=== PATIENT | male | born 1970 | race Caucasian/White ===

== ENCOUNTER → 2019-07-23 | Outpatient (CLI) | payer SELFPAY ==
--- NOTE | 2019-07-23 14:37 | Diagnostic Imaging Report ---
INDICATION: Foot pain status post injury. COMPARISON: None. FINDINGS: 4 views of the left foot demonstrate no acute fracture or dislocation. There are no focal osseous lesions. There is no soft tissue swelling. Joint spaces are well maintained. No radiopaque foreign bodies are seen. Small plantar and Achilles insertion calcaneal enthesophytes are noted. IMPRESSION: No acute fractures or dislocations of the left foot. Dictated by: Dictated on workstation # [id number]
--- NOTE | 2019-07-23 18:32 | Diagnostic Imaging Report ---
INDICATION: Knee pain. COMPARISON: Comparison made with prior examination 07/23/2019 FINDINGS: There is mild narrowing of the medial knee joint compartment. There is some mild marginal osteophytosis. There are also degenerative changes of the patellofemoral joint. No fracture. IMPRESSION: Mild osteoarthritic change in the medial knee joint compartment and patellofemoral joint, otherwise unremarkable. Dictated by: Dictated on workstation # [id number]
== END ==
LOC: RAD FS 14:02
PROVIDERS: ATTEND Nurse Practitioner Family
DX: S99.922A Unspecified injury of left foot, initial encounter (principal); S89.92XA Unspecified injury of left lower leg, initial encounter; M17.12 Unilateral primary osteoarthritis, left knee
CPT/HCPCS: 73562; 73630

== ENCOUNTER 2020-08-01 00:16 | Emergency (ER) | payer SELFPAY ==
[~2020-08-01] VITALS: Ht 193 cm; Wt 115.9 kg
[2020-08-01 00:23] VITALS: BP 132/78
--- NOTE | 2020-08-01 00:37 | ED Lower Extremity ---
General Chief Complaint: Lower Extremity Stated Complaint: RIGHT LEG SWELLING,FALL Source: patient Exam Limitations: no limitations History of Present Illness Date Seen by Provider: Aug 01, 2020 Time Seen by Provider: 12:30 Initial Comments 50 y/o male presents w pain and bruising to his pelvic area. Today was standing on a chair and fell off (stradling) the arm hitting himself in the groin. Developed bruising in the area of the groin. Applied ice several times today. Now concerned by the appearance and pain. Denies testicular pain Allergies and Home Medications Patient Home Medication List Home Medication List Reviewed: Yes Review of Systems Constitutional: no symptoms reported; No fever, No malaise, No weakness Genitourinary: No decreased output, No discharge, No dysuria, No frequency, No hematuria, No hesitancy, No incontinence, No nocturia; pain, other (bruising of groin on the right) Musculoskeletal: see HPI; No back pain, No joint pain; muscle pain; No muscle weakness, No neck pain Skin: change in color, lumps; No rash Past Cfagrkz-Vsnzwg-Qfgaki Hx Past Med/Social Hx: Reviewed Nursing Past Med/Soc Hx Patient Social History Alcohol Use: Denies Use Recreational Drug Use: No Smoking Status: Current Everyday Smoker Type Used: Cigarettes 2nd Hand Smoke Exposure: Yes Recent Foreign Travel: No Contact w/Someone Who Travel: No Recent Hopitalizations: No Physical Abuse: No Sexual Abuse: No Mistreated: No Fear: No Seasonal Allergies Seasonal Allergies: No Past Medical History Surgeries: Yes (bilat carpal tunnel, broken ankle, 2 bilat surgery on feet) Gallbladder Respiratory: No Cardiac: No Neurological: No Genitourinary: No Gastrointestinal: Yes Crohns Disease Musculoskeletal: Yes (bilat ankle surgery) Endocrine: No HEENT: No Cancer: No Psychosocial: Yes Anxiety Physical Exam Vital Signs Vital Signs - First Documented 08/01/20 00:23 Temp 36.6 Pulse 80 Resp 16 B/P (MAP) 132/78 (96) Pulse Ox 97 O2 Delivery Room Air Capillary Refill : Height, Weight, BMI Height: '" Weight: lbs. oz. kg; BMI Method: General Appearance: WD/WN, no apparent distress Skin: ecchymosis (large area of ecchymosis Right inguinal from ASIS and along inguinal ligament to scrotum ...all on right side. Moderate edema without significant tenderness, no discreste hematoma formation. No inguinal mass or scrotal mass suspicious for hernia. Localized to groin, spares thigh and abdo men.) Progress/Results/Core Measures Results/Orders Vital Signs/I&O 08/01/20 00:23 Temp 36.6 Pulse 80 Resp 16 B/P (MAP) 132/78 (96) Pulse Ox 97 O2 Delivery Room Air Departure Impression Primary Impression: Contusion Qualified Codes: S30.0XXA - Contusion of lower back and pelvis, initial encounter Disposition: HOME, SELF-CARE Condition: Stable Departure-Patient Inst. Decision time for Depature: 00:37 Referrals: NIKKI ABRRAGAN MD (PCP/Family) Primary Care Physician Patient Instructions: Contusion (DC) Add. Discharge Instructions: See your doctor in 1 week for any further questions or concerns regarding your contusion All discharge instructions reviewed with patient and/or family. Voiced understanding. DMITRIY MONROY DO Aug 01, 2020 00:37
== END 2020-08-01 00:43 | disposition home or self-care (01) ==
LOC: EDUNIT# 00:16 → ER FS 00:19
DX: S30.1XXA Contusion of abdominal wall, initial encounter (principal); F17.210 Nicotine dependence, cigarettes, uncomplicated; W07.XXXA Fall from chair, initial encounter
CPT/HCPCS: 99283

== ENCOUNTER → 2020-12-22 | Outpatient (CLI) | payer OTHER ==
--- NOTE | 2020-12-22 16:16 | Diagnostic Imaging Report ---
INDICATION: Chronic right foot ulcer. TIME OF EXAM: 12:24 PM 3 views of the right foot were obtained. Large posterior plantar calcaneal spurs are noted. There is midfoot degenerative change. There are postoperative changes with plate and screws transfixing distal fibula. No definite bony destructive changes are seen. No fractures are identified. Soft tissues are unremarkable. No definite soft tissue gas is identified. IMPRESSION: Chronic changes. No acute bony abnormality is detected. Dictated by: Dictated on workstation # [id number]
== END ==
LOC: RAD 11:41
PROVIDERS: ATTEND Orthopaedic Surgery Hand Surgery
DX: L97.512 Non-pressure chronic ulcer of other part of right foot with fat layer exposed (principal); G60.9 Hereditary and idiopathic neuropathy, unspecified; F17.210 Nicotine dependence, cigarettes, uncomplicated
CPT/HCPCS: 73630

== ENCOUNTER → 2020-12-22 | Outpatient (CLI) | payer OTHER | LOC: WOUNDCARE 09:45 | PROVIDERS: ATTEND Orthopaedic Surgery Hand Surgery | DX: L97.512 Non-pressure chronic ulcer of other part of right foot with fat layer exposed (principal); G60.9 Hereditary and idiopathic neuropathy, unspecified; F17.210 Nicotine dependence, cigarettes, uncomplicated | CPT/HCPCS: 11042; 87070; 87205; G0463; L4360; 87077 ==

== ENCOUNTER → 2020-12-30 | Outpatient (CLI) | payer OTHER ==
[2020-12-30 09:19] LABS: BASOPHILS # (AUTO) 0.1 10^3/uL (0.0-0.1); BASOPHILS % (AUTO) 2 % (0-10); EOSINOPHILS # (AUTO) 0.3 10^3/uL (0.0-0.3); EOSINOPHILS % (AUTO) 5 % (0-10); HEMATOCRIT 45 % (40-54); HEMOGLOBIN 14.9 g/dL (13.3-17.7); LYMPHOCYTES # (AUTO) 1.7 10^3/uL (1.0-4.0); LYMPHOCYTES % (AUTO) 28 % (12-44); MEAN CORPUSCULAR HEMOGLOBIN 31 pg (25-34); MEAN CORPUSCULAR HGB CONC 33 g/dL (32-36); MEAN CORPUSCULAR VOLUME 94 fL (80-99); MEAN PLATELET VOLUME 10.6 fL (9.0-12.2); MONOCYTES # (AUTO) 0.6 10^3/uL (0.0-1.0); MONOCYTES % (AUTO) 11 % (0-12); NEUTROPHILS # (AUTO) 3.3 10^3/uL (1.8-7.8); NEUTROPHILS % (AUTO) 55 % (42-75); PLATELET COUNT 218 10^3/uL (130-400); WHITE BLOOD COUNT 6.1 10^3/uL (4.3-11.0)
[2020-12-30 09:41] LABS: ALANINE AMINOTRANSFERASE 25 U/L (0-55); ALBUMIN 3.8 GM/DL (3.2-4.5); ALKALINE PHOSPHATASE 80 U/L (40-136); BILIRUBIN,TOTAL 0.5 MG/DL (0.1-1.0); BUN/CREATININE RATIO 15; CALCIUM 8.6 MG/DL (8.5-10.1); CARBON DIOXIDE 24 MMOL/L (21-32); CHLORIDE 107 MMOL/L (98-107); CREATININE SERUM 0.85 MG/DL (0.60-1.30); GFR ESTIMATED > 60; GLUCOSE 109 MG/DL (70-105); SODIUM 141 MMOL/L (135-145); TOTAL PROTEIN 6.3 GM/DL (6.4-8.2)
== END ==
LOC: LAB 09:05
PROVIDERS: ATTEND Surgery
DX: L97.512 Non-pressure chronic ulcer of other part of right foot with fat layer exposed (principal); G60.9 Hereditary and idiopathic neuropathy, unspecified; T65.222A Toxic effect of tobacco cigarettes, intentional self-harm, initial encounter; F17.210 Nicotine dependence, cigarettes, uncomplicated; R73.03 Prediabetes
CPT/HCPCS: 36415; 80053; 83036; 85025

== ENCOUNTER → 2020-12-30 | Outpatient (CLI) | payer OTHER | LOC: WOUNDCARE 08:10 | PROVIDERS: ATTEND Surgery | DX: I96 Gangrene, not elsewhere classified (principal); L97.512 Non-pressure chronic ulcer of other part of right foot with fat layer exposed; G60.9 Hereditary and idiopathic neuropathy, unspecified; T65.222A Toxic effect of tobacco cigarettes, intentional self-harm, initial encounter; F17.210 Nicotine dependence, cigarettes, uncomplicated | CPT/HCPCS: 11042; A6197; G0463 ==

== ENCOUNTER → 2021-01-06 | Outpatient (CLI) | payer OTHER | LOC: WOUNDCARE 08:54 | PROVIDERS: ATTEND Surgery | DX: I96 Gangrene, not elsewhere classified (principal); L97.512 Non-pressure chronic ulcer of other part of right foot with fat layer exposed; G60.9 Hereditary and idiopathic neuropathy, unspecified; T65.222A Toxic effect of tobacco cigarettes, intentional self-harm, initial encounter; F17.218 Nicotine dependence, cigarettes, with other nicotine-induced disorders | CPT/HCPCS: 11042; G0463 ==

== ENCOUNTER → 2021-01-13 | Outpatient (CLI) | payer OTHER | LOC: WOUNDCARE 09:17 | PROVIDERS: ATTEND Orthopaedic Surgery Hand Surgery | DX: I96 Gangrene, not elsewhere classified (principal); L97.512 Non-pressure chronic ulcer of other part of right foot with fat layer exposed; G60.9 Hereditary and idiopathic neuropathy, unspecified; T65.222A Toxic effect of tobacco cigarettes, intentional self-harm, initial encounter; F17.218 Nicotine dependence, cigarettes, with other nicotine-induced disorders | CPT/HCPCS: 11042; G0463 ==

== ENCOUNTER → 2021-01-20 | Outpatient (CLI) | payer OTHER | LOC: WOUNDCARE 08:41 | PROVIDERS: ATTEND Surgery | DX: L97.512 Non-pressure chronic ulcer of other part of right foot with fat layer exposed (principal); G60.9 Hereditary and idiopathic neuropathy, unspecified; T65.222A Toxic effect of tobacco cigarettes, intentional self-harm, initial encounter; F17.218 Nicotine dependence, cigarettes, with other nicotine-induced disorders; I96 Gangrene, not elsewhere classified | CPT/HCPCS: 11043; A6207; G0463 ==

== ENCOUNTER → 2021-01-28 | Outpatient (CLI) | payer OTHER | LOC: WOUNDCARE 08:52 | PROVIDERS: ATTEND Orthopaedic Surgery Hand Surgery | DX: L97.512 Non-pressure chronic ulcer of other part of right foot with fat layer exposed (principal); G60.9 Hereditary and idiopathic neuropathy, unspecified; T65.222A Toxic effect of tobacco cigarettes, intentional self-harm, initial encounter; I96 Gangrene, not elsewhere classified; F17.218 Nicotine dependence, cigarettes, with other nicotine-induced disorders | CPT/HCPCS: 11042; G0463 ==

== ENCOUNTER → 2021-02-03 | Outpatient (CLI) | payer OTHER | LOC: WOUNDCARE 08:20 | PROVIDERS: ATTEND Surgery | DX: I96 Gangrene, not elsewhere classified (principal); L97.512 Non-pressure chronic ulcer of other part of right foot with fat layer exposed; G60.9 Hereditary and idiopathic neuropathy, unspecified; T65.222A Toxic effect of tobacco cigarettes, intentional self-harm, initial encounter; F17.218 Nicotine dependence, cigarettes, with other nicotine-induced disorders | CPT/HCPCS: 11042; A6260; G0463 ==

== ENCOUNTER → 2021-02-10 | Outpatient (CLI) | payer BC, OTHER | LOC: WOUNDCARE 08:13 | PROVIDERS: ATTEND Surgery | DX: I96 Gangrene, not elsewhere classified (principal); L97.512 Non-pressure chronic ulcer of other part of right foot with fat layer exposed; G60.9 Hereditary and idiopathic neuropathy, unspecified; T65.222A Toxic effect of tobacco cigarettes, intentional self-harm, initial encounter; F17.218 Nicotine dependence, cigarettes, with other nicotine-induced disorders | CPT/HCPCS: 11042; A6197; G0463 ==

== ENCOUNTER → 2021-02-15 | Outpatient (CLI) | payer BC, OTHER | LOC: WOUNDCARE 09:20 | PROVIDERS: ATTEND Surgery | DX: L97.512 Non-pressure chronic ulcer of other part of right foot with fat layer exposed (principal); G60.9 Hereditary and idiopathic neuropathy, unspecified; T65.222A Toxic effect of tobacco cigarettes, intentional self-harm, initial encounter; I96 Gangrene, not elsewhere classified; F17.218 Nicotine dependence, cigarettes, with other nicotine-induced disorders | CPT/HCPCS: 11042; A6207; G0463 ==

== ENCOUNTER → 2021-02-17 | Outpatient (CLI) | payer BC | LOC: WOUNDCARE 08:08 | PROVIDERS: ATTEND Surgery | DX: L97.512 Non-pressure chronic ulcer of other part of right foot with fat layer exposed (principal); G60.9 Hereditary and idiopathic neuropathy, unspecified; T65.222A Toxic effect of tobacco cigarettes, intentional self-harm, initial encounter; I96 Gangrene, not elsewhere classified; F17.218 Nicotine dependence, cigarettes, with other nicotine-induced disorders | CPT/HCPCS: 29445 ==

== ENCOUNTER 2021-02-23 02:02 | Emergency (ER) | payer BC ==
[2021-02-23 02:27] VITALS: BP 133/90
--- NOTE | 2021-02-23 02:34 | ED General ---
General Chief Complaint: General Problems/Pain Stated Complaint: WOUND CARE, CAST TO TIGHT ON RIGHT FOOT Nursing Triage Note: Pt received wound care from [facility] and had a cast put on his right foot last Monday. Pt complaining tonight that the cast is too tight and he would like it cut off. Nursing Sepsis Screen: No Definite Risk Source of Information: Patient Exam Limitations: No Limitations History of Present Illness Date Seen by Provider: Feb 23, 2021 Time Seen by Provider: 02:08 Initial Comments Here with complaint of pain to the right foot. Had wound care cast placed a few days ago by Dr. Duggan. States that he has been moving his toes tonight he cannot stand it anymore and needs to have it removed. He resents with wound care card showing how to do cast removal if there are problems. Denies other concerns. Timing/Duration: 4-6 Hours Severity: Moderate Allergies and Home Medications Patient Home Medication List Home Medication List Reviewed: Yes Review of Systems Review of Systems Constitutional: No chills, No fever Respiratory: no symptoms reported Cardiovascular: no symptoms reported Musculoskeletal: joint pain, muscle pain Skin: lesions, other (Chronic foot ulcer) Psychiatric/Neurological: Pre-Existing Deficit Past Szdqwes-Xtnbux-Nnahug Hx Past Med/Social Hx: Reviewed Nursing Past Med/Soc Hx Patient Social History Alcohol Use: Denies Use Type Used: Cigarettes 2nd Hand Smoke Exposure: Yes Recent Infectious Disease Expo: No Recent Hopitalizations: No Seasonal Allergies Seasonal Allergies: No Past Medical History Surgeries: Yes (bilat carpal tunnel, broken ankle, 2 bilat surgery on feet) Gallbladder Respiratory: No Cardiac: No Neurological: No Genitourinary: No Gastrointestinal: Yes Crohns Disease Musculoskeletal: Yes (bilat ankle surgery) Endocrine: No HEENT: No Cancer: No Psychosocial: Yes Anxiety Family Medical History Reviewed Nursing Family Hx Physical Exam Vital Signs Vital Signs - First Documented 02/23/21 02:06 Pulse 102 Resp 18 B/P (MAP) 133/90 (104) Pulse Ox 96 O2 Delivery Room Air Capillary Refill : Less Than 3 Seconds Height, Weight, BMI Height: '" Weight: lbs. oz. kg; 31.00 BMI Method: General Appearance: No Apparent Distress, WD/WN Respiratory: Lungs Clear, Normal Breath Sounds Cardiovascular: Regular Rate, Rhythm, No Murmur Extremity: Other (Wound care cast boot to right foot and lower extremity) Neurologic/Psychiatric: Alert, Oriented x3 Progress/Results/Core Measures Suspected Sepsis Recent Fever Within 48 Hours: No Infection Criteria Present: None New/Unexplained Altered Menta: No Sepsis Screen: No Definite Risk SIRS Temperature: Pulse: 102 Respiratory Rate: 18 Blood Pressure 133 /90 Mean: 104 Results/Orders Vital Signs/I&O 02/23/21 02:06 Pulse 102 Resp 18 B/P (MAP) 133/90 (104) Pulse Ox 96 O2 Delivery Room Air Capillary Refill : Less Than 3 Seconds Blood Pressure Mean: 104 Progress Note : Progress Note Seen and evaluated. Per patient request and following the directions on the wound care card, cast was easily removed. Stockinette remained in place and patient have his own boot from previous wound care management that he then put on. States he feels much better and was appreciative of the cast removal. Patient instructed to follow-up with Dr. Duggan tomorrow by calling wound care clinic. Discharged home with return precautions. Patient verbalized understanding of instructions and agreement with plan. Departure Impression Primary Impression: Encounter for cast removal Disposition: HOME, SELF-CARE Condition: Improved Departure-Patient Inst. Decision time for Depature: 02:32 Referrals: NIKKI BARRAGAN MD (PCP/Family) Primary Care Physician MAVERICK DUGGAN MD Patient Instructions: Cast Care, Wound Care (DC) Add. Discharge Instructions: All discharge instructions reviewed with patient and/or family. Voiced understanding. Use protective boot as previously prescribed. Follow-up with Dr. Duggan for recheck and further evaluation. Call his office in the morning for appointment. Return for worse pain, swelling, foul-smelling drainage or other concerns as needed. Copy Copies To 1: MAVERICK DUGGAN MD, TIMOTHY D MD Feb 23, 2021 02:34
== END 2021-02-23 02:36 | disposition home or self-care (01) ==
LOC: EDUNIT# 02:02 → ER FS 02:04
DX: Z46.89 Encounter for fitting and adjustment of other specified devices (principal); Z77.22 Contact with and (suspected) exposure to environmental tobacco smoke (acute) (chronic)
CPT/HCPCS: 99281

== ENCOUNTER → 2021-02-24 | Outpatient (CLI) | payer BC | LOC: WOUNDCARE 08:09 | PROVIDERS: ATTEND Surgery | DX: I96 Gangrene, not elsewhere classified (principal); L97.512 Non-pressure chronic ulcer of other part of right foot with fat layer exposed; G60.9 Hereditary and idiopathic neuropathy, unspecified; T65.222A Toxic effect of tobacco cigarettes, intentional self-harm, initial encounter; F17.218 Nicotine dependence, cigarettes, with other nicotine-induced disorders | CPT/HCPCS: 11042; G0463 ==

== ENCOUNTER → 2021-03-03 | Outpatient (CLI) | payer BC | LOC: WOUNDCARE 08:12 | PROVIDERS: ATTEND Surgery | DX: I96 Gangrene, not elsewhere classified (principal); L97.512 Non-pressure chronic ulcer of other part of right foot with fat layer exposed; G60.9 Hereditary and idiopathic neuropathy, unspecified; T65.222A Toxic effect of tobacco cigarettes, intentional self-harm, initial encounter; F17.218 Nicotine dependence, cigarettes, with other nicotine-induced disorders | CPT/HCPCS: 11042; G0463 ==

== ENCOUNTER → 2021-03-12 | Outpatient (CLI) | payer BC | LOC: WOUNDCARE 08:18 | PROVIDERS: ATTEND Orthopaedic Surgery Hand Surgery | DX: I96 Gangrene, not elsewhere classified (principal); L97.512 Non-pressure chronic ulcer of other part of right foot with fat layer exposed; G60.9 Hereditary and idiopathic neuropathy, unspecified; F17.218 Nicotine dependence, cigarettes, with other nicotine-induced disorders; T65.222A Toxic effect of tobacco cigarettes, intentional self-harm, initial encounter | CPT/HCPCS: 11042; 87070; 87077; 87205; G0463 ==

== ENCOUNTER 2021-04-16 01:27 | Emergency (ER) | payer BC ==
[2021-04-16] MEDS ORDERED: HYDROcodone/APAP 5 MG/325 MG (LORTAB) TAB ONE (01:49)
[2021-04-16] MEDS ORDERED: CEPHALEXIN 250 MG (KEFLEX) CAP PO ONE (01:49)
[2021-04-16] MEDS ORDERED: CEPHALEXIN 250 MG (KEFLEX) CAP PO STA (01:51)
--- NOTE | 2021-04-16 01:56 | ED Integumentary General ---
General Chief Complaint: Skin/Wound Problems Stated Complaint: RIGHT LEG SWELLING Nursing Triage Note: Pt presents with right lower leg swelling. Pt is being treated for an ulcer on the bottom of his right foot but states the redness and swelling up his leg just started over the past 2 days Source: patient Exam Limitations: no limitations History of Present Illness Date Seen by Provider: April 16, 2021 Time Seen by Provider: 01:40 Initial Comments 51 y/o male presents w 2 days of redness, swelling progressively getting worse of R foot and leg. Has has an ulcer on his R great toe for months, seeing a dag coater and scheduled to have surgery in April. Was taking doxycycline as "prevention" until 10 days ago when he ran out. Wound has changed appearance and looks more yellow to him. NO wound drainage. No other skin problems. Redness and swelling have progressed rapidly over 2 days up to and starting to go above his knee. No previous occurrence of similar reaction in the past. Allergies and Home Medications Allergies Coded Allergies: No Known Drug Allergies (Unverified , 02/23/21) Home Medications Bacitracin/Polymyxin B Sulfate 28.3 Gm Oint...g., 28.3 GM TP BID Prescribed by: DMITRIY MONROY on 04/16/21156 Cephalexin 500 Mg Tablet, 500 MG PO QID Prescribed by: DMITRIY MONROY on 04/16/21156 Hydrocodone/Acetaminophen 1 Each Tablet, 1 EACH PO Q4H Prescribed by: DMITRIY MONROY on 04/16/21 0159 Patient Home Medication List Home Medication List Reviewed: Yes Review of Systems Review of Systems Constitutional: No fever, No malaise, No weakness EENTM: no symptoms reported Respiratory: no symptoms reported; No cough, No dyspnea on exertion, No short of breath, No stridor, No wheezing Cardiovascular: No chest pain; edema; No palpitations, No syncope Gastrointestinal: No abdominal pain, No nausea, No vomiting Musculoskeletal: No back pain, No joint pain; other (R foot and leg pain w swelling) Skin: see HPI, change in color (redness R foot and leg), lesions (ulcer R great toe) Past Vlrefui-Wuigim-Xobyhs Hx Past Med/Social Hx: Reviewed Nursing Past Med/Soc Hx Patient Social History Alcohol Use: Denies Use Smoking Status: Current Everyday Smoker Type Used: Cigarettes 2nd Hand Smoke Exposure: Yes Recent Infectious Disease Expo: No Recent Hopitalizations: No Seasonal Allergies Seasonal Allergies: No Past Medical History Surgeries: Yes (bilat carpal tunnel, broken ankle, 2 bilat surgery on feet) Gallbladder Respiratory: No Cardiac: No Neurological: No Genitourinary: No Gastrointestinal: Yes Crohns Disease Musculoskeletal: Yes (bilat ankle surgery) Endocrine: No HEENT: No Cancer: No Psychosocial: Yes Anxiety Physical Exam Vital Signs Vital Signs - First Documented 04/16/21 01:33 Temp 36.8 Pulse 88 Resp 16 B/P (MAP) 128/76 (93) Pulse Ox 95 O2 Delivery Room Air Capillary Refill : Less Than 3 Seconds General Appearance: WD/WN, no apparent distress Extremities: normal range of motion; No calf tenderness; pedal edema, swelling, other (chronic ulcer ventral R great toe without discharge or abscess forma tion....from there proximally erythema of toe, foot and distal leg, then sparsely to proximal leg and a little above knee, not circumferentially. no distinct demarcation of infection) Progress/Results/Core Measures Results/Orders My Orders Orders - DMITRIY MONROY DO Cephalexin Capsule (Keflex Capsule) (04/16/21 01:51) Hydrocodone/Apap 5/325 Tablet (Lortab 5 (04/16/21 02:00) Medications Given in ED Current Medications Medications Dose Ordered Sig/Thanh Route Start Time Stop Time Status Last Admin Dose Admin Acetaminophen/ Hydrocodone Bitart 1 ea ONCE ONCE PO 04/16/21 02:00 04/16/21 02:01 UNV 04/16/21 01:58 1 EA Vital Signs/I&O 04/16/21 01:33 Temp 36.8 Pulse 88 Resp 16 B/P (MAP) 128/76 (93) Pulse Ox 95 O2 Delivery Room Air Blood Pressure Mean: 93 Progress Progress Note : Progress Note short trial of po Abx w hopes of turning the spread of infection over the next 24 -48 hours. Advised to return to ER if not improving during this time to consider admission. See DC instructions. Departure Impression Primary Impression: Cellulitis Qualified Codes: L03.115 - Cellulitis of right lower limb Disposition: 01 HOME, SELF-CARE Condition: Stable Departure-Patient Inst. Decision time for Depature: 01:51 Referrals: NIKKI BARRAGAN MD (PCP/Family) Primary Care Physician Patient Instructions: Cellulitis (Skin Infection), Adult (DC) Add. Discharge Instructions: follow up with your wound care doctor tomorrow if possible, otherwise [facility]. Return to the ER in 24 - 48 hours if not improving....for possible admission to hospital w IV antibiotics Keep your leg elevated above your chest to decrease swelling. Avoid excessive time on your feet. apply antibiotic ointment to your wound/ ulcer twice daily after soaking in epsom salt water. All discharge instructions reviewed with patient and/or family. Voiced understanding. Scripts Bacitracin/Polymyxin B Sulfate (Polysporin Ointment) 28.3 Gm Oint...g. 28.3 GM TP BID, #1 TUBE Prov: DMITRIY MONROY DO 04/16/21 Hydrocodone/Acetaminophen (Hydrocodone-Acetamin 5-325 mg) 1 Each Tablet 1 EACH PO Q4H for Abdominal Pain, #10 TAB Prov: DMITRIY MONROY DO 04/16/21 Cephalexin (Cephalexin) 500 Mg Tablet 500 MG PO QID, #40 TAB 0 Refills Prov: DMITRIY MONROY DO 04/16/21 Work/School Note: Work Release Form Date Seen in the Emergency Department: April 16, 2021 Return to Work: April 19, 2021 Restrictions: No Restrictions DMITRIY MONROY DO April 16, 2021 01:56
[2021-04-16] MEDS ORDERED: ACHD5005 PO (01:57)
[2021-04-16] MEDS ORDERED: CEPH500T PO (01:57)
[2021-04-16] MEDS ORDERED: BACI28.35 TP (01:57)
[2021-04-16] MEDS ORDERED: HYDROcodone/APAP 5 MG/325 MG (LORTAB) TAB PO ONE (02:00)
[2021-04-16 02:02] VITALS: BP 128/76
== END 2021-04-16 02:03 | disposition home or self-care (01) ==
LOC: EDUNIT# 01:27 → ER FS 01:30
DX: L03.115 Cellulitis of right lower limb (principal); F17.210 Nicotine dependence, cigarettes, uncomplicated
CPT/HCPCS: 99283

== ENCOUNTER 2021-05-09 11:46 | Emergency (ER) | payer BC ==
[~2021-05-09] VITALS: Ht 193 cm; Wt 113.8 kg
[~2021-05-09 11:46] MED LIST: ACHD5005 PO; BACI28.35 TP; CEPH500T PO
[2021-05-09 11:53] VITALS: BP 132/69
--- NOTE | 2021-05-09 11:55 | ED General ---
General Stated Complaint: PAIN IN RIBS POST-SURGERY History of Present Illness Date Seen by Provider: May 09, 2021 Time Seen by Provider: 11:55 Initial Comments 51-year-old male presents with bilateral lower chest wall pain. Patient reports that started 2 days ago after he coughed a lot following an elective surgery. The pain gets worse with any movement. Is now moved around to his bilateral back. Started in the right lower chest wall. Patient reports that as long as he sitting still he has no pain but then gets worse with any type of movement especially rotation and twisting. He denies any shortness of breath, fever, chills, nausea or vomiting. Allergies and Home Medications Allergies Coded Allergies: No Known Drug Allergies (Unverified , 02/23/21) Home Medications Bacitracin/Polymyxin B Sulfate 28.3 Gm Oint...g., 28.3 GM TP BID Prescribed by: DMITRIY MONROY on 04/16/21 015 Cephalexin 500 Mg Tablet, 500 MG PO QID Prescribed by: DMITRIY MONROY on 04/16/21 015 Hydrocodone/Acetaminophen 1 Each Tablet, 1 EACH PO Q4H Prescribed by: DMITRIY MONROY on 04/16/21 0159 Patient Home Medication List Home Medication List Reviewed: Yes Review of Systems Review of Systems Constitutional: No chills, No fever Respiratory: see HPI Cardiovascular: see HPI Gastrointestinal: no symptoms reported Genitourinary: no symptoms reported Skin: no symptoms reported Psychiatric/Neurological: No Symptoms Reported Past Pksnwek-Kohiid-Snsdsc Hx Patient Social History Type Used: Cigarettes 2nd Hand Smoke Exposure: Yes Recent Hopitalizations: No Seasonal Allergies Seasonal Allergies: No Past Medical History Surgeries: Yes (bilat carpal tunnel, broken ankle, 2 bilat surgery on feet) Gallbladder Respiratory: No Cardiac: No Neurological: No Genitourinary: No Gastrointestinal: Yes Crohns Disease Musculoskeletal: Yes (bilat ankle surgery) Endocrine: No HEENT: No Cancer: No Psychosocial: Yes Anxiety Physical Exam Vital Signs Capillary Refill : Height, Weight, BMI Height: '" Weight: lbs. oz. kg; 31.00 BMI Method: General Appearance: No Apparent Distress, WD/WN HEENT: Moist Mucous Membranes Neck: Normal Inspection, Non Tender Respiratory: Lungs Clear, Normal Breath Sounds, No Accessory Muscle Use Cardiovascular: Regular Rate, Rhythm, No Edema Gastrointestinal: Non Tender, Soft Back: Normal Inspection Neurologic/Psychiatric: Alert, Oriented x3, Normal Mood/Affect, postdoctoral fellow II-XII Norm as Tested Progress/Results/Core Measures Suspected Sepsis SIRS Temperature: Pulse: Respiratory Rate: Blood Pressure / Mean: Results/Orders My Orders Orders - HERO VALDIVIA DO Chest Pa/Lat (2 View) (05/09/21 12:01) Vital Signs/I&O Capillary Refill : Progress Note : Progress Note Patient is consistent with chest wall strain. I will provide him a prescription for a couple days of muscle relaxant. Patient stable and discharged Diagnostic Imaging Diagonstic Imaging: Xray Plain Films/CT/US/NM/MRI: chest Comments Date of Exam:05/09/21 CHEST PA/LAT (2 VIEW) EXAMINATION: Chest 2 view HISTORY: chest wall pain COMPARISON: None available. FINDINGS: Heart size and pulmonary vasculature are normal. The lungs are clear without consolidation, pleural effusion, or pneumothorax. Degenerative changes of the thoracic spine. Osseous structures are otherwise intact. IMPRESSION: 1. No acute radiographic abnormality in the chest. Departure Impression Primary Impression: Muscle strain of chest wall Qualified Codes: S29.011A - Strain of muscle and tendon of front wall of thorax, initial encounter Disposition: HOME, SELF-CARE Condition: Stable Departure-Patient Inst. Referrals: NIKKI BARRAGAN MD (PCP/Family) Primary Care Physician Patient Instructions: Muscle Strain ED Add. Discharge Instructions: Tylenol or ibuprofen as needed for pain 4% topical lidocaine as directed on package as needed for pain Scripts Cyclobenzaprine HCl (Cyclobenzaprine HCl) 10 Mg Tablet 10 MG PO Q8H PRN for SPASMS, #15 TAB 0 Refills Prov: SHEAHEROCHANDAN Ro DO 05/09/21 SHEAHERO L DO May 09, 2021 11:55
--- NOTE | 2021-05-09 12:30 | Diagnostic Imaging Report ---
EXAMINATION: Chest 2 view HISTORY: chest wall pain COMPARISON: None available. FINDINGS: Heart size and pulmonary vasculature are normal. The lungs are clear without consolidation, pleural effusion, or pneumothorax. Degenerative changes of the thoracic spine. Osseous structures are otherwise intact. IMPRESSION: 1. No acute radiographic abnormality in the chest. Dictated by: Dictated on workstation # [id number]
[2021-05-09] MEDS ORDERED: CYCL10TA9 PO (12:44)
== END 2021-05-09 12:47 | disposition home or self-care (01) ==
LOC: EDUNIT# 11:46 → ER FS 11:49
DX: S29.011A Strain of muscle and tendon of front wall of thorax, initial encounter (principal); Z77.22 Contact with and (suspected) exposure to environmental tobacco smoke (acute) (chronic); X58.XXXA Exposure to other specified factors, initial encounter
CPT/HCPCS: 71046

== ENCOUNTER → 2021-05-22 | Outpatient (CLI) | payer BC ==
[~2021-05-22] MED LIST changes: +CYCL10TA9 PO
== END ==
LOC: LAB FS 09:36
PROVIDERS: ATTEND Internal Medicine Infectious Disease
DX: M86.9 Osteomyelitis, unspecified (principal)
CPT/HCPCS: 36415; 80202

== ENCOUNTER → 2021-05-24 | Outpatient (CLI) | payer BC ==
[2021-05-24 09:54] LABS: BASOPHILS # (AUTO) 0.1 10^3/uL (0.0-0.1); BASOPHILS % (AUTO) 2 % (0-10); EOSINOPHILS # (AUTO) 0.3 10^3/uL (0.0-0.3); EOSINOPHILS % (AUTO) 4 % (0-10); HEMATOCRIT 42 % (40-54); HEMOGLOBIN 14.2 G/DL (13.3-17.7); LYMPHOCYTES # (AUTO) 1.4 X 10^3 (1.0-4.0); LYMPHOCYTES % (AUTO) 23 % (12-44); MEAN CORPUSCULAR HEMOGLOBIN 31 PG (25-34); MEAN CORPUSCULAR HGB CONC 34 G/DL (32-36); MEAN CORPUSCULAR VOLUME 91 FL (80-99); MONOCYTES # (AUTO) 0.4 X 10^3 (0.0-1.0); MONOCYTES % (AUTO) 7 % (0-12); NEUTROPHILS # (AUTO) 3.9 X 10^3 (1.8-7.8); NEUTROPHILS % (AUTO) 64 % (42-75); PLATELET COUNT 268 10^3/uL (130-400); WHITE BLOOD COUNT 6.1 10^3/uL (4.3-11.0)
[2021-05-24 09:55] LABS: BUN/CREATININE RATIO 16; CARBON DIOXIDE 25 MMOL/L (21-32); CHLORIDE 108 MMOL/L (98-107); CREATININE SERUM 0.82 MG/DL (0.60-1.30); ERYTHROCYTE SEDIMENTATION RATE 9 MM/HR (0-30); GFR ESTIMATED > 60; POTASSIUM 3.7 MMOL/L (3.6-5.0); SODIUM 141 MMOL/L (135-145)
[2021-05-24 09:56] LABS: ALANINE AMINOTRANSFERASE 16 U/L (0-55); ALBUMIN 3.6 GM/DL (3.2-4.5); ALKALINE PHOSPHATASE 98 U/L (40-136); BILIRUBIN,TOTAL 0.3 MG/DL (0.1-1.0); CALCIUM 8.3 MG/DL (8.5-10.1); GLUCOSE 105 MG/DL (70-105); TOTAL PROTEIN 6.1 GM/DL (6.4-8.2); VANCOMYCIN,TROUGH 5.6 UG/ML (10.0-20.0)
== END ==
LOC: LAB FS 08:44
PROVIDERS: ATTEND Internal Medicine Infectious Disease
DX: M86.9 Osteomyelitis, unspecified (principal); G60.9 Hereditary and idiopathic neuropathy, unspecified
CPT/HCPCS: 36415; 80053; 80202; 85652

== ENCOUNTER → 2021-05-27 | Outpatient (CLI) | payer BC | LOC: LAB FS 08:16 | PROVIDERS: ATTEND Internal Medicine Infectious Disease | DX: A41.50 Gram-negative sepsis, unspecified (principal); M86.671 Other chronic osteomyelitis, right ankle and foot | CPT/HCPCS: 36415; 80202 ==

== ENCOUNTER → 2021-05-30 | Outpatient (CLI) | payer BC ==
[2021-05-30 09:30] LABS: HEMATOCRIT 44 % (40-54); HEMOGLOBIN 14.9 G/DL (13.3-17.7); MEAN CORPUSCULAR HEMOGLOBIN 31 PG (25-34); MEAN CORPUSCULAR VOLUME 92 FL (80-99); WHITE BLOOD COUNT 5.1 10^3/uL (4.3-11.0)
[2021-05-30 09:31] LABS: BASOPHILS # (AUTO) 0.1 10^3/uL (0.0-0.1); BASOPHILS % (AUTO) 1 % (0-10); EOSINOPHILS # (AUTO) 0.2 10^3/uL (0.0-0.3); EOSINOPHILS % (AUTO) 5 % (0-10); LYMPHOCYTES # (AUTO) 1.4 X 10^3 (1.0-4.0); LYMPHOCYTES % (AUTO) 27 % (12-44); MEAN CORPUSCULAR HGB CONC 34 G/DL (32-36); MEAN PLATELET VOLUME 11.2 FL (7.4-10.4); MONOCYTES # (AUTO) 0.4 X 10^3 (0.0-1.0); MONOCYTES % (AUTO) 8 % (0-12); NEUTROPHILS % (AUTO) 59 % (42-75); PLATELET COUNT 196 10^3/uL (130-400)
[2021-05-30 09:43] LABS: CARBON DIOXIDE 24 MMOL/L (21-32); CHLORIDE 105 MMOL/L (98-107); POTASSIUM 3.7 MMOL/L (3.6-5.0); SODIUM 139 MMOL/L (135-145)
[2021-05-30 09:44] LABS: ALANINE AMINOTRANSFERASE 32 U/L (0-55); ALBUMIN 3.7 GM/DL (3.2-4.5); ALKALINE PHOSPHATASE 95 U/L (40-136); BILIRUBIN,TOTAL 0.4 MG/DL (0.1-1.0); BUN/CREATININE RATIO 11; CALCIUM 8.4 MG/DL (8.5-10.1); CREATININE SERUM 0.79 MG/DL (0.60-1.30); GFR ESTIMATED > 60; GLUCOSE 101 MG/DL (70-105); TOTAL PROTEIN 6.2 GM/DL (6.4-8.2); VANCOMYCIN,TROUGH 8.2 UG/ML (10.0-20.0)
== END ==
LOC: IHC 09:03
PROVIDERS: ATTEND Internal Medicine Infectious Disease
DX: M86.671 Other chronic osteomyelitis, right ankle and foot (principal)
CPT/HCPCS: 80053; 80202; 85025; 85652

== ENCOUNTER → 2021-06-01 | Outpatient (CLI) | payer BC ==
[2021-06-01 09:22] LABS: CHLORIDE 105 MMOL/L (98-107); POTASSIUM 3.6 MMOL/L (3.6-5.0); SODIUM 140 MMOL/L (135-145)
[2021-06-01 09:23] LABS: ALANINE AMINOTRANSFERASE 27 U/L (0-55); ALBUMIN 3.9 GM/DL (3.2-4.5); ALKALINE PHOSPHATASE 93 U/L (40-136); BILIRUBIN,TOTAL 0.4 MG/DL (0.1-1.0); BUN/CREATININE RATIO 12; CALCIUM 8.4 MG/DL (8.5-10.1); CARBON DIOXIDE 25 MMOL/L (21-32); CREATININE SERUM 0.81 MG/DL (0.60-1.30); GFR ESTIMATED > 60; GLUCOSE 118 MG/DL (70-105); TOTAL PROTEIN 6.3 GM/DL (6.4-8.2)
[2021-06-01 09:39] LABS: HEMATOCRIT 45 % (40-54); HEMOGLOBIN 15.1 G/DL (13.3-17.7); MEAN CORPUSCULAR HEMOGLOBIN 31 PG (25-34); MEAN CORPUSCULAR VOLUME 92 FL (80-99); WHITE BLOOD COUNT 5.6 10^3/uL (4.3-11.0)
[2021-06-01 09:40] LABS: BASOPHILS # (AUTO) 0.1 10^3/uL (0.0-0.1); BASOPHILS % (AUTO) 2 % (0-10); EOSINOPHILS # (AUTO) 0.3 10^3/uL (0.0-0.3); EOSINOPHILS % (AUTO) 4 % (0-10); LYMPHOCYTES # (AUTO) 1.5 X 10^3 (1.0-4.0); LYMPHOCYTES % (AUTO) 26 % (12-44); MEAN CORPUSCULAR HGB CONC 34 G/DL (32-36); MONOCYTES # (AUTO) 0.4 X 10^3 (0.0-1.0); MONOCYTES % (AUTO) 8 % (0-12); NEUTROPHILS # (AUTO) 3.4 X 10^3 (1.8-7.8); NEUTROPHILS % (AUTO) 60 % (42-75); PLATELET COUNT 228 10^3/uL (130-400)
[2021-06-01 09:41] LABS: BAND NEUTROPHILS 0 %; BASOPHILS % (MANUAL) 0 %; EOSINOPHILS % (MANUAL) 2 %; ERYTHROCYTE SEDIMENTATION RATE 3 MM/HR (0-30); LYMPHOCYTES % (MANUAL) 28 %; MONOCYTES % (MANUAL) 8 %; NEUTROPHILS % (MANUAL) 62 %
== END ==
LOC: IHC 08:29
PROVIDERS: ATTEND Internal Medicine Infectious Disease
DX: A41.50 Gram-negative sepsis, unspecified (principal); M86.671 Other chronic osteomyelitis, right ankle and foot
CPT/HCPCS: 80053; 85007; 85027; 85652

== ENCOUNTER → 2021-06-03 | Outpatient (CLI) | payer BC | LOC: IHC 08:49 | PROVIDERS: ATTEND Internal Medicine Infectious Disease | DX: Z47.89 Encounter for other orthopedic aftercare (principal); A41.50 Gram-negative sepsis, unspecified; M86.671 Other chronic osteomyelitis, right ankle and foot | CPT/HCPCS: 80202 ==

== ENCOUNTER → 2021-06-07 | Outpatient (CLI) | payer BC ==
[2021-06-07 11:21] LABS: POTASSIUM 3.8 MMOL/L (3.6-5.0); SODIUM 143 MMOL/L (135-145)
[2021-06-07 11:22] LABS: ALANINE AMINOTRANSFERASE 18 U/L (0-55); ALBUMIN 3.8 GM/DL (3.2-4.5); ALKALINE PHOSPHATASE 90 U/L (40-136); BILIRUBIN,TOTAL 0.4 MG/DL (0.1-1.0); BUN/CREATININE RATIO 19; CALCIUM 8.4 MG/DL (8.5-10.1); CARBON DIOXIDE 25 MMOL/L (21-32); CHLORIDE 108 MMOL/L (98-107); GFR ESTIMATED > 60; GLUCOSE 120 MG/DL (70-105); TOTAL PROTEIN 6.1 GM/DL (6.4-8.2)
[2021-06-07 11:55] LABS: BASOPHILS # (AUTO) 0.1 10^3/uL (0.0-0.1); BASOPHILS % (AUTO) 1 % (0-10); EOSINOPHILS # (AUTO) 0.3 10^3/uL (0.0-0.3); EOSINOPHILS % (AUTO) 6 % (0-10); HEMATOCRIT 44 % (40-54); HEMOGLOBIN 14.6 G/DL (13.3-17.7); LYMPHOCYTES # (AUTO) 1.2 X 10^3 (1.0-4.0); LYMPHOCYTES % (AUTO) 24 % (12-44); MEAN CORPUSCULAR HEMOGLOBIN 31 PG (25-34); MEAN CORPUSCULAR HGB CONC 33 G/DL (32-36); MEAN CORPUSCULAR VOLUME 92 FL (80-99); MEAN PLATELET VOLUME 11.3 FL (7.4-10.4); MONOCYTES # (AUTO) 0.5 X 10^3 (0.0-1.0); MONOCYTES % (AUTO) 10 % (0-12); NEUTROPHILS # (AUTO) 2.9 X 10^3 (1.8-7.8); NEUTROPHILS % (AUTO) 59 % (42-75); PLATELET COUNT 203 10^3/uL (130-400); WHITE BLOOD COUNT 4.9 10^3/uL (4.3-11.0)
[2021-06-07 11:56] LABS: ATYPICAL LYMPHOCYTES 5 %; BAND NEUTROPHILS 1 %; BASOPHILS % (MANUAL) 2 %; EOSINOPHILS % (MANUAL) 6 %; LYMPHOCYTES % (MANUAL) 20 %; MONOCYTES % (MANUAL) 6 %; NEUTROPHILS % (MANUAL) 60 %
[2021-06-07 11:57] LABS: ERYTHROCYTE SEDIMENTATION RATE 6 MM/HR (0-30)
[2021-06-07 15:03] LABS: CREATINE KINASE 90 U/L (30-200)
== END ==
LOC: LAB FS 09:14
PROVIDERS: ATTEND Internal Medicine Infectious Disease
DX: A41.50 Gram-negative sepsis, unspecified (principal); M86.671 Other chronic osteomyelitis, right ankle and foot
CPT/HCPCS: 36415; 80053; 82550; 85007; 85027; 85652

== ENCOUNTER → 2021-06-14 | Outpatient (CLI) | payer BC ==
[2021-06-14 11:36] LABS: ALANINE AMINOTRANSFERASE 23 U/L (0-55); ALKALINE PHOSPHATASE 104 U/L (40-136); BILIRUBIN,TOTAL 0.3 MG/DL (0.1-1.0); BUN/CREATININE RATIO 19; CALCIUM 8.8 MG/DL (8.5-10.1); CARBON DIOXIDE 25 MMOL/L (21-32); CHLORIDE 108 MMOL/L (98-107); CREATININE SERUM 0.78 MG/DL (0.60-1.30); GFR ESTIMATED > 60; GLUCOSE 142 MG/DL (70-105); POTASSIUM 3.8 MMOL/L (3.6-5.0); SODIUM 142 MMOL/L (135-145)
[2021-06-14 11:37] LABS: ALBUMIN 3.8 GM/DL (3.2-4.5); TOTAL PROTEIN 6.5 GM/DL (6.4-8.2)
[2021-06-14 11:46] LABS: BASOPHILS % (AUTO) 1 % (0-10); EOSINOPHILS % (AUTO) 4 % (0-10); HEMATOCRIT 46 % (40-54); HEMOGLOBIN 15.5 G/DL (13.3-17.7); LYMPHOCYTES % (AUTO) 25 % (12-44); MEAN CORPUSCULAR HEMOGLOBIN 31 PG (25-34); MEAN CORPUSCULAR HGB CONC 34 G/DL (32-36); MEAN CORPUSCULAR VOLUME 93 FL (80-99); MEAN PLATELET VOLUME 11.4 FL (7.4-10.4); MONOCYTES % (AUTO) 6 % (0-12); NEUTROPHILS % (AUTO) 63 % (42-75); PLATELET COUNT 222 10^3/uL (130-400); WHITE BLOOD COUNT 5.7 10^3/uL (4.3-11.0)
[2021-06-14 11:47] LABS: BAND NEUTROPHILS 1 %; BASOPHILS # (AUTO) 0.1 10^3/uL (0.0-0.1); BASOPHILS % (MANUAL) 1 %; EOSINOPHILS # (AUTO) 0.2 10^3/uL (0.0-0.3); EOSINOPHILS % (MANUAL) 2 %; ERYTHROCYTE SEDIMENTATION RATE 2 MM/HR (0-30); LYMPHOCYTES # (AUTO) 1.4 X 10^3 (1.0-4.0); LYMPHOCYTES % (MANUAL) 22 %; MONOCYTES # (AUTO) 0.4 X 10^3 (0.0-1.0); MONOCYTES % (MANUAL) 7 %; NEUTROPHILS # (AUTO) 3.6 X 10^3 (1.8-7.8); NEUTROPHILS % (MANUAL) 67 %
== END ==
LOC: LAB FS 10:13
PROVIDERS: ATTEND Internal Medicine Infectious Disease
DX: A41.50 Gram-negative sepsis, unspecified (principal); M86.671 Other chronic osteomyelitis, right ankle and foot
CPT/HCPCS: 36415; 80053; 82550; 85007; 85027; 85652

== ENCOUNTER → 2021-06-21 | Outpatient (CLI) | payer BC ==
[2021-06-21 14:20] LABS: BILIRUBIN,TOTAL 0.4 MG/DL (0.1-1.0); CALCIUM 8.7 MG/DL (8.5-10.1); CREATININE SERUM 1.33 MG/DL (0.60-1.30); POTASSIUM 4.1 MMOL/L (3.6-5.0)
[2021-06-21 14:21] LABS: TOTAL PROTEIN 6.4 GM/DL (6.4-8.2)
[2021-06-21 15:19] LABS: HEMATOCRIT 48 % (40-54); HEMOGLOBIN 15.8 G/DL (13.3-17.7); MEAN CORPUSCULAR HEMOGLOBIN 31 PG (25-34); MEAN CORPUSCULAR HGB CONC 33 G/DL (32-36); MEAN CORPUSCULAR VOLUME 93 FL (80-99); WHITE BLOOD COUNT 6.3 10^3/uL (4.3-11.0)
[2021-06-21 15:20] LABS: BAND NEUTROPHILS 4 %; BASOPHILS # (AUTO) 0.1 10^3/uL (0.0-0.1); BASOPHILS % (AUTO) 1 % (0-10); EOSINOPHILS # (AUTO) 0.2 10^3/uL (0.0-0.3); EOSINOPHILS % (AUTO) 3 % (0-10); EOSINOPHILS % (MANUAL) 5 %; LYMPHOCYTES # (AUTO) 1.3 X 10^3 (1.0-4.0); LYMPHOCYTES % (AUTO) 20 % (12-44); LYMPHOCYTES % (MANUAL) 21 %; MEAN PLATELET VOLUME 11.8 FL (7.4-10.4); MONOCYTES # (AUTO) 0.5 X 10^3 (0.0-1.0); MONOCYTES % (AUTO) 8 % (0-12); MONOCYTES % (MANUAL) 9 %; NEUTROPHILS # (AUTO) 4.2 X 10^3 (1.8-7.8); NEUTROPHILS % (AUTO) 67 % (42-75); NEUTROPHILS % (MANUAL) 61 %; PLATELET COUNT 210 10^3/uL (130-400); RBC MORPH NORMAL
== END ==
LOC: IHC 12:09
PROVIDERS: ATTEND Internal Medicine Infectious Disease
DX: M86.671 Other chronic osteomyelitis, right ankle and foot (principal); A41.50 Gram-negative sepsis, unspecified
CPT/HCPCS: 80053; 82550; 85007; 85027

== ENCOUNTER → 2021-06-28 | Outpatient (CLI) | payer BC ==
[2021-06-28 15:31] LABS: EOSINOPHILS % (AUTO) 4 % (0-10); HEMATOCRIT 49 % (40-54); HEMOGLOBIN 16.3 G/DL (13.3-17.7); LYMPHOCYTES % (AUTO) 31 % (12-44); MEAN CORPUSCULAR HEMOGLOBIN 31 PG (25-34); MEAN CORPUSCULAR HGB CONC 33 G/DL (32-36); MEAN CORPUSCULAR VOLUME 94 FL (80-99); MEAN PLATELET VOLUME 11.6 FL (7.4-10.4); MONOCYTES % (AUTO) 9 % (0-12); NEUTROPHILS % (AUTO) 54 % (42-75); PLATELET COUNT 198 10^3/uL (130-400)
[2021-06-28 15:32] LABS: BASOPHILS # (AUTO) 0.1 10^3/uL (0.0-0.1); BASOPHILS % (AUTO) 2 % (0-10); EOSINOPHILS # (AUTO) 0.2 10^3/uL (0.0-0.3); LYMPHOCYTES # (AUTO) 1.9 X 10^3 (1.0-4.0); MONOCYTES # (AUTO) 0.5 X 10^3 (0.0-1.0); NEUTROPHILS # (AUTO) 3.3 X 10^3 (1.8-7.8)
[2021-06-28 16:57] LABS: ALBUMIN 4.1 GM/DL (3.2-4.5); BILIRUBIN,TOTAL 0.4 MG/DL (0.1-1.0); CREATININE SERUM 0.84 MG/DL (0.60-1.30); POTASSIUM 3.4 MMOL/L (3.6-5.0); TOTAL PROTEIN 6.9 GM/DL (6.4-8.2)
[2021-06-28 17:46] LABS: ERYTHROCYTE SEDIMENTATION RATE 2 MM/HR (0-30)
[2021-06-28 18:32] LABS: BASOPHILS % (MANUAL) 1 %; BURR CELLS SLIGHT; EOSINOPHILS % (MANUAL) 4 %; LYMPHOCYTES % (MANUAL) 27 %; MONOCYTES % (MANUAL) 9 %; NEUTROPHILS % (MANUAL) 59 %
== END ==
LOC: IHC 13:47
PROVIDERS: ATTEND Internal Medicine Infectious Disease
DX: M86.671 Other chronic osteomyelitis, right ankle and foot (principal); A41.50 Gram-negative sepsis, unspecified
CPT/HCPCS: 80053; 82550; 85007; 85027; 85652